=== PATIENT | female | born 1985 | race Caucasian/White ===

== ENCOUNTER 2020-09-08 22:17 | Inpatient (IN) | payer MEDICAID ==
[~2020-09-08] VITALS: Ht 175.3 cm; Wt 90.7 kg
--- NOTE | 2020-09-08 22:25 | NUR ---
PATIENT C/O RIGHT LOWER QUAD ABD PAIN RADIATING TO LEFT SIDE. PATIENT STATED A HX OF APPENDECTOMY. PATIENT IS A/O X 4, RR EVEN AND UNLABORED, NO SIGNS OF SOB NOTED. PATIENT CONNCETED TO FUR FINISHER.
[2020-09-08 23:13] LABS: BILIRUBIN,URINE SMALL (NEGATIVE); COLOR,URINE YELLOW (YELLOW); LEUKOCYTE ESTERASE ,URINE Negative (NEGATIVE); NITRITE, URINE Negative (NEGATIVE); PH,URINE 5.5 (5.0-8.0); PROTEIN,URINE Trace mg/dl (NEGATIVE); UGLUCOSE Negative (NEGATIVE); UROBILINOGEN,URINE 0.2 EU/dL (0.2)
[2020-09-08 23:18] LABS: BACTERIA,URINE Rare /HPF (None Seen); RBC,URINE NONE SEEN /HPF (0-2); SQUAMOUS EPITHELIAL CELL,UR Few /HPF (None Seen); WBC,URINE NONE SEEN /HPF (0-3)
[2020-09-08] MEDS ORDERED: ONDANSETRON HCL/PF 4 MG/2 ML VIAL ONE (23:19)
[2020-09-08] MEDS ORDERED: MORPHINE SULFATE INJ 4 MG/ML DISP.SYRIN ONE (23:19)
[2020-09-08] MEDS ORDERED: IV NS 0.9% 1,000 ML BAG IV ONE (23:30)
[2020-09-08] MEDS ORDERED: ONDANSETRON HCL/PF 4 MG/2 ML VIAL IVP ONE (23:30)
[2020-09-08] MEDS ORDERED: MORPHINE SULFATE INJ 2 MG/ML DISP.SYRIN IV ONE (23:30)
[2020-09-08 23:37] LABS: ALBUMIN 3.7 g/dL (3.4-5.0); BILIRUBIN,DIRECT 0.1 mg/dL (0.0-0.2); BILIRUBIN,TOTAL 0.4 mg/dL (0.2-1.0)
[2020-09-08 23:44] LABS: BASOPHILS # (AUTO) 0.1 K/uL (0.0-0.2); BASOPHILS % (AUTO) 0.2 % (0.0-2.0); EOSINOPHILS % (AUTO) 0.1 % (0.0-6.0); HEMATOCRIT 45 % (33-45); HEMOGLOBIN 15.3 g/dL (11.5-14.8); LYMPHOCYTES # (AUTO) 2.5 K/uL (0.8-4.8); LYMPHOCYTES % (AUTO) 9.6 % (20.0-44.0); MEAN CORPUSCULAR HGB CONC 34 g/dl (31.0-36.0); MEAN CORPUSCULAR VOLUME 91 fL (82-100); MONOCYTES # (AUTO) 1.7 K/uL (0.1-1.30); MONOCYTES % (AUTO) 6.7 % (2.0-12.0); NEUTROPHILS # (AUTO) 21.5 K/uL (1.8-8.9); NEUTROPHILS % (AUTO) 83.4 % (43.0-81.0); PLATELET COUNT (AUTO) 571 K/uL (150-450); RED BLOOD CELL COUNT(AUTO) 4.92 MIL/uL (4.0-5.2); WHITE BLOOD COUNT (AUTO) 25.8 K/uL (4.3-11.0)
--- NOTE | 2020-09-09 00:35 | NUR ---
RAD AT BEDSIDE
[2020-09-09] MEDS ORDERED: PIPERACILLIN /TAZOBACTAM 3.375 G in IV D5W 50 ML IV ONE (01:00)
--- NOTE | 2020-09-09 01:20 | NUR ---
COVID SWAB COLLECTED AND SENT TO LAB
[2020-09-09] MEDS ORDERED: PIPERACILLIN /TAZOBACTAM 3.375 G VIAL IV ONE (01:21)
[2020-09-09] MEDS ORDERED: Z GUARD REMEDY 2 OZ OINT TP PRN (03:30)
[2020-09-09] MEDS ORDERED: MAG HYDROX/AL HYDROX/SIMETH 30 ML UDC PO PRN (03:30)
[2020-09-09] MEDS ORDERED: MORPHINE SULFATE INJ 2 MG/ML DISP.SYRIN IV PRN (03:30)
[2020-09-09] MEDS ORDERED: ONDANSETRON HCL/PF 4 MG/2 ML VIAL IVP PRN (03:30)
[2020-09-09] MEDS ORDERED: MAGNESIUM HYDROXIDE 30 ML UDC PO PRN (03:30)
[2020-09-09] MEDS ORDERED: PIPERACILLIN /TAZOBACTAM 3.375 G in IV D5W 50 ML IV SCH (06:00)
--- NOTE | 2020-09-09 06:30 | NUR ---
PATINET RESTING IN BED, VSS, A/OX4. WILL CONTINUE TO MONITOR.
--- NOTE | 2020-09-09 07:16 | NUR ---
room [facility]
--- NOTE | 2020-09-09 07:27 | NUR ---
REPORT GIVEN TO IRVING YOUNG.
[2020-09-09] MEDS ORDERED: PIPERACILLIN /TAZOBACTAM 3.375 G in IV D5W 100 ML IV SCH (08:00)
[2020-09-09] MEDS ORDERED: OLAN10TA3 PO (08:05)
[2020-09-09] MEDS ORDERED: ESTR2TAB PO (08:05)
[2020-09-09] MEDS ORDERED: SPIR100T5 PO ×2 (08:05)
--- NOTE | 2020-09-09 08:17 | NUR ---
patient transferred to [facility] floor in stable condition. patient a/ox4, no distress noted.
--- NOTE | 2020-09-09 08:30 | NUR ---
RN OPENING NOTE Received patient awake in bed appears calm and relaxed no signs of distress. On room air tolerating well. Vital signs as follows BP 122/79, HR 79, RR 18, Temp: 98.8, O2: 94%. Patient is aox4. D5 1/2 NS running. No co pain or discomfort at this time. Safety measures reinforced. Call light within reach. Bed locked and on lowest position. Will cont to monitor.
[2020-09-09] MEDS: PANTOPRAZOLE 40 MG VIAL IV SCH (09:50)
[2020-09-09] MEDS: IV D5/0.45 NACL 1,000 ML IV PRN ×2 (10:05→17:57)
--- NOTE | 2020-09-09 10:30 | NUR ---
Taken to OR via bed.
[2020-09-09] MEDS ORDERED: BUPIVACAINE MPF 0.5% W/EPI INJ 30 ML VIAL ONE (10:52)
[2020-09-09] MEDS ORDERED: MIDAZOLAM HCL 2 MG/2ML VIAL ONE (10:58)
[2020-09-09] MEDS ORDERED: FENTANYL PF 250MCG/5ML AMPUL ONE (10:58)
[2020-09-09] MEDS ORDERED: ROCURONIUM BROMIDE 50 MG/5 ML ONE (10:59)
[2020-09-09] MEDS ORDERED: FAMOTIDINE/PF INJ 20 MG/2 ML VIAL IV ONE (10:59)
[2020-09-09] MEDS ORDERED: GLYCOPYRROLATE 0.2 MG/ML VIAL ONE (11:24)
[2020-09-09] MEDS ORDERED: METRONIDAZOLE 500MG/ NS 100ML 100 ML IV ONE (12:10)
[2020-09-09] MEDS ORDERED: HYDROMORPHONE 1 MG/1 ML DISP.SYRIN ONE (12:47)
--- NOTE | 2020-09-09 13:35 | NUR ---
pt cAME BACK FROM OR ON O2 2L TOLERATING WELL. HAS 4 DRESSINGS. 1 BIG ON RIGHT LOWER ABD, 3 SMALL ONES FROM LAP. CYNTHIA DRAIN ATTACHED. VS FOLLOWS: HR 103, RR 18 TEMP 98.0 BP 122/76. SAFETY MEASURES REINFORCED CALL LIGHT WITHIN REACH. AT BEDSIDE.
[2020-09-09] MEDS: MORPHINE SULFATE INJ 2 MG/ML DISP.SYRIN IV PRN ×3 (15:51→22:44)
[2020-09-09 16:40] VITALS: BP 113/71
[2020-09-09] MEDS: ACETAMINOPHEN 325 MG TABLET PO PRN (17:34)
[2020-09-09] MEDS: METOCLOPRAMIDE HCL 10 MG/2 ML VIAL IV SCH (17:34)
--- NOTE | 2020-09-09 18:40 | NUR ---
RN CLOSING NOTE 19 Patient in bed awake. Appears calm but in pain. Per patient and they tried to sit up straight for meal but felt so much pain. Gave pain meds as ordered. IVF running D5 1/2 NS @ 100 ml/hr. All due meds given. All needs attended. Safety measures maintained. Will endorse to warehouse supervisor 3rd shift nurse for [employer].
[2020-09-09 20:00] VITALS: BP 111/75
--- NOTE | 2020-09-09 20:00 | NUR ---
MS RN OPENING NOTES RECEIVED PATIENT RESTING IN BED WITH AT BEDSIDE, ALERT AND ORIENTED X 4. NO DISTRESS OR SOB NOTED, PATIENT STABLE ON 2L OF OXYGEN VIA NASAL CANNULA, BREATHING EVEN AND UNLABORED. NO COMPLAINTS OF PAIN AT THIS TIME. RIGHT AC #20G IV ACCESS RUNNING IVF D5 1/2 NS @ 100 ML/HR. ABDOMINAL DRESSING CLEAN AND INTACT, CYNTHIA DRAIN INTACT. SAFETY MEASURES IMPLEMENTED WITH BED AT LOWEST POSITION AND SIDE RAILS UP X 2, BED ALARM ON. CALL LIGHT IS WITHIN REACH. WILL CONTINUE TO MONITOR THROUGHOUT SHIFT.
[2020-09-09] MEDS: ANCEF 1 GM/50 ML D5W IV SCH (20:07)
[2020-09-09] MEDS: METRONIDAZOLE 500MG/ NS 100ML 500 MG in PREMIX 1 EA IV SCH (21:07)
[2020-09-10] MEDS: METOCLOPRAMIDE HCL 10 MG/2 ML VIAL IV SCH ×4 (00:03→17:26)
[2020-09-10] MEDS: MORPHINE SULFATE INJ 2 MG/ML DISP.SYRIN IV PRN ×7 (01:25→21:36)
[2020-09-10] MEDS: ANCEF 1 GM/50 ML D5W IV SCH ×3 (04:01→20:07)
[2020-09-10] MEDS: METRONIDAZOLE 500MG/ NS 100ML 500 MG in PREMIX 1 EA IV SCH ×3 (05:04→21:36)
[2020-09-10] MEDS: IV D5/0.45 NACL 1,000 ML IV PRN ×2 (06:07→17:26)
--- NOTE | 2020-09-10 07:00 | NUR ---
MS RN CLOSING NOTES PATIENT RESTING IN BED, ALERT AND ORIENTED X 4. NO DISTRESS OR SOB NOTED, PATIENT STABLE ON 2L OF OXYGEN VIA NASAL CANNULA, BREATHING EVEN AND UNLABORED. NO COMPLAINTS OF PAIN AT THIS TIME. RIGHT AC #20G IV ACCESS RUNNING IVF D5 1/2 NS @ 100 ML/HR. ABDOMINAL DRESSING CLEAN, DRY, AND INTACT, CYNTHIA DRAIN INTACT WITH 40 ML SEROSANGUINEOUS OUTPUT. MEDICATIONS GIVEN ORDERED, PT NEEDS MET THROUGHOUT SHIFT. SAFETY MEASURES IMPLEMENTED WITH BED AT LOWEST POSITION AND SIDE RAILS UP X 2, BED ALARM ON. CALL LIGHT IS WITHIN REACH. WILL ENDORSE TO DAY SHIFT NURSE FOR CONTINUITY OF CARE
--- NOTE | 2020-09-10 07:08 | NUR ---
MS RN OPENING NOTES RECEIVE PT AWAKE IN BED AT THIS TIME. AOX4. ABLE TO MAKE NEEDS KNOWN. NO SOB NOTED, NO S/O OF ANY ACUTE DISTRESS NOTED, NO C/O PAIN AT THIS. BREATHING EVEN AND UNLABORED. PT NOTED ON 2LPM OXYGEN VIA NC. IV ACCESS IN RAC G#20, INTACT, PATENT AND FLUSHING WELL. RIGHT LOWER ABDOMINAL CYNTHIA DRAIN TO BULB SUCTION NOTED WITH SANGUINOUS FLUID. SAFETY PRECAUTIONS IN PLACE AND MAINTAINED AT ALL TIMES. BED IN LOWEST LOCKED POSITION, HOB ELEVATED, SIDE RAILS UP X2, CALL LIGHT AND TABLE WITHIN REACH. WILL CONTINUE TO MONITOR
[2020-09-10 08:00] VITALS: BP 119/76
[2020-09-10] MEDS: PANTOPRAZOLE 40 MG VIAL IV SCH (08:44)
--- NOTE | 2020-09-10 08:45 | NUR ---
PATIENT C/O OF ACHING RIGHT LOWER ABDOMINAL PAIN OF 8/10. PT NOTED GRIMACING. VS BP 119/76, HR 106, RR 18, TEMP 100.1, SPO2 95% ON RA. PER PATIENT REQUEST MORPHINE 1MG IV Q2H PRN ADMINISTERED PER ORDER. WILL CONTINUE TO MONITOR
[2020-09-10 08:49] LABS: BASOPHILS % (AUTO) 0.2 % (0.0-2.0)
--- NOTE | 2020-09-10 09:00 | NUR ---
patient noted with Temp 100.1, cooling measures in place, room kept cool, ice pack under arms, pt uncovered. will continue to monitor Addendum: 09/10/20 at 0920 by MICHAEL ARRIAGA RN patient noted with Temp 100.1, cooling measures in place, room kept cool, ice pack under arms, pt uncovered. Dr voss made aware. no new orders. will continue to monitor
[2020-09-10 09:03] LABS: HEMATOCRIT 35 % (33-45); HEMOGLOBIN 11.9 g/dL (11.5-14.8); LYMPHOCYTES # (AUTO) 1.3 K/uL (0.8-4.8); LYMPHOCYTES % (AUTO) 7.5 % (20.0-44.0); MEAN CORPUSCULAR HGB CONC 34 g/dl (31.0-36.0); MEAN CORPUSCULAR VOLUME 91 fL (82-100); MONOCYTES # (AUTO) 1.2 K/uL (0.1-1.30); MONOCYTES % (AUTO) 7.4 % (2.0-12.0); NEUTROPHILS # (AUTO) 14.3 K/uL (1.8-8.9); NEUTROPHILS % (AUTO) 84.9 % (43.0-81.0); PLATELET COUNT (AUTO) 419 K/uL (150-450); RED BLOOD CELL COUNT(AUTO) 3.83 MIL/uL (4.0-5.2); WHITE BLOOD COUNT (AUTO) 16.9 K/uL (4.3-11.0)
--- NOTE | 2020-09-10 09:45 | NUR ---
PATIENT PROVIDED WITH INCENTIVE SPIROMETER AND EDUCATION PROVIDED ON USE. PT VERBALIZED AND DEMONSTRATED APPROPRIATE USE. WILL CONTINUE WITH PLAN OF CARE
--- NOTE | 2020-09-10 10:03 | NUR ---
REASSESSED TEMPERATURE AT THIS TIME WITH COOLING MEASURES IN PLACE. PT NOTED WITH TEMP 98.1. WILL CONTINUE TO MONITOR
[2020-09-10 10:15] LABS: THYROID STIMULATING HORMONE 1.11 uIU/mL (0.358-3.74)
[2020-09-10 10:42] LABS: ALBUMIN 2.6 g/dL (3.4-5.0); BILIRUBIN,TOTAL 0.5 mg/dL (0.2-1.0); CALCIUM, SERUM 7.8 mg/dL (8.5-10.1); CREATININE 0.9 mg/dL (0.6-1.3); MAGNESIUM 1.9 mg/dL (1.8-2.4); PHOSPHORUS 1.7 mg/dL (2.5-4.9); POTASSIUM 3.4 mmol/L (3.5-5.1)
--- NOTE | 2020-09-10 11:04 | NUR ---
PATIENT C/O OF ACHING RIGHT LOWER ABDOMINAL PAIN OF 8/10. PT NOTED GRIMACING. VS BP 123/78, HR 105, RR 18, TEMP 99.2, SPO2 93% ON RA. PER PATIENT REQUEST MORPHINE 1MG IV Q2H PRN ADMINISTERED PER ORDER. COOLING MEASURES IN PLACE, ROOM KEPT COOL, SHEETS REMOVED. WILL CONTINUE TO MONITOR
[2020-09-10] MEDS: ACETAMINOPHEN 325 MG TABLET PO PRN ×2 (12:35→20:07)
--- NOTE | 2020-09-10 12:36 | NUR ---
patient noted with Temp 100.1 at this time, cooling measures in place, room kept cool, ice pack under arms, pt uncovered. Dr Eason at bedside and made aware. per patient request, tylenol 650mg po q6h prn administered per order. will continue to monitor
--- NOTE | 2020-09-10 14:07 | NUR ---
PATIENT C/O OF ACHING RIGHT LOWER ABDOMINAL PAIN OF 10/10. PT APPEARS RESTLESS. VS BP 123/80, HR 98, RR 18, TEMP 98.9, SPO2 96% ON RA. PER PATIENT REQUEST MORPHINE 1MG IV Q2H PRN ADMINISTERED PER ORDER. COOLING MEASURES IN PLACE, ROOM KEPT COOL, SHEETS REMOVED. WILL CONTINUE TO MONITOR
[2020-09-10] MEDS ORDERED: K PHOS NEUTRAL 250 MG TABLET PO ONE (15:00)
[2020-09-10 16:00] VITALS: BP 127/78
--- NOTE | 2020-09-10 17:35 | NUR ---
PATIENT C/O OF ACHING RIGHT LOWER ABDOMINAL PAIN OF 8/10. PT APPEARS RESTLESS. VS BP 127/79, HR 92, RR 18, TEMP 98.5, SPO2 93% ON RA. PER PATIENT REQUEST MORPHINE 1MG IV Q2H PRN ADMINISTERED PER ORDER. COOLING MEASURES IN PLACE, ROOM KEPT COOL, SHEETS REMOVED. WILL CONTINUE TO MONITOR
--- NOTE | 2020-09-10 19:05 | NUR ---
RN CLOSING NOTES RECEIVED PT AWAKE IN BED, PT REMAINED STABLE THROUGHOUT SHIFT. ALL PATIENT CARE, NEEDS AND MEDICATIONS ADMINISTERED ANTICIPATED PER ORDER. PAIN AND NAUSEA CONTRO ADMINISTERED PER ORER. PT AMBULATED AD SARINA PER ORDER. KEPT CLEAN AND DRY. SAFETY PRECAUTIONS IN PLACE AND MAINTAINED AT ALL TIMES. BED IN LOWEST LOCKED POSITION, HOB ELEVATED, SIDE RAILS UP X2, CALL LIGHT AND TABLE WITHIN REACH. WILL ENDORSE TO HUNTING AND FISHING GUIDE NURSE FOR BEV
--- NOTE | 2020-09-10 20:00 | NUR ---
MS RN OPENING NOTES PATIENT RESTING IN BED WITH AT BEDSIDE, ALERT AND ORIENTED X 4. NO DISTRESS OR SOB NOTED, PATIENT STABLE ON ROOM AIR, BREATHING EVEN AND UNLABORED. NO COMPLAINTS OF PAIN AT THIS TIME. RIGHT AC #20G IV ACCESS RUNNING IVF D5 1/2 NS @ 100 ML/HR. ABDOMINAL DRESSING CLEAN AND INTACT, CYNTHIA DRAIN INTACT. SAFETY MEASURES IMPLEMENTED WITH BED AT LOWEST POSITION AND SIDE RAILS UP X 2, BED ALARM ON. CALL LIGHT IS WITHIN REACH. WILL CONTINUE TO MONITOR THROUGHOUT SHIFT.
--- NOTE | 2020-09-10 20:10 | NUR ---
MS RN NOTE PATIENT HAS TEMP OF 100.0, COOLING MEASURES IN PLACE, ROOM KEPT COOL, PATIENT UNCOVERED, ICE PACK PROVIDED. TYLENOL 650 MG GIVEN PER PATIENT REQUEST. WILL CONTINUE TO MONITOR
[2020-09-10 20:29] VITALS: BP 135/81
--- NOTE | 2020-09-10 20:45 | NUR ---
MS RN NOTES PATIENT REQUESTED SOMETHING FOR SLEEP B/C SHE HAS BEEN HAVING TROUBLE SLEEPING. NOTIFIED CLAIRE JOHN NP WITH NEW ORDERS FOR BENADRYL 50 MG PO HS PRN FOR SLEEP. ORDER READBACK AND CONFIRMED.
[2020-09-10] MEDS: diphenhydrAMINE HCL 50 MG CAPSULE PO PRN (22:15)
[2020-09-11] MEDS: METOCLOPRAMIDE HCL 10 MG/2 ML VIAL IV SCH ×5 (00:35→23:22)
[2020-09-11] MEDS: ACETAMINOPHEN 325 MG TABLET PO PRN ×3 (02:24→17:58)
[2020-09-11] MEDS: ANCEF 1 GM/50 ML D5W IV SCH ×3 (04:14→20:05)
[2020-09-11] MEDS: METRONIDAZOLE 500MG/ NS 100ML 500 MG in PREMIX 1 EA IV SCH ×3 (05:21→21:23)
[2020-09-11] MEDS: IV D5/0.45 NACL 1,000 ML IV PRN ×2 (05:37→18:25)
--- NOTE | 2020-09-11 06:57 | NUR ---
MS RN CLOSING NOTES PATIENT RESTING IN BED, ALERT AND ORIENTED X 4. NO DISTRESS OR SOB NOTED, PATIENT STABLE ON ROOM AIR, BREATHING EVEN AND UNLABORED. NO COMPLAINTS OF PAIN AT THIS TIME. RIGHT AC #20G IV ACCESS RUNNING IVF D5 1/2 NS @ 100 ML/HR. ABDOMINAL DRESSING CLEAN, DRY, AND INTACT, CYNTHIA DRAIN INTACT WITH SEROSANGUINEOUS OUTPUT. MEDICATIONS GIVEN ORDERED, PT NEEDS MET THROUGHOUT SHIFT. SAFETY MEASURES IMPLEMENTED WITH BED AT LOWEST POSITION AND SIDE RAILS UP X 2, BED ALARM ON. CALL LIGHT IS WITHIN REACH. WILL ENDORSE TO DAY SHIFT NURSE FOR CONTINUITY OF CARE
[2020-09-11 07:14] LABS: BASOPHILS % (AUTO) 0.2 % (0.0-2.0); EOSINOPHILS % (AUTO) 0.8 % (0.0-6.0); HEMATOCRIT 32 % (33-45); HEMOGLOBIN 11.3 g/dL (11.5-14.8); LYMPHOCYTES # (AUTO) 1.8 K/uL (0.8-4.8); LYMPHOCYTES % (AUTO) 12.8 % (20.0-44.0); MEAN CORPUSCULAR HGB CONC 35 g/dl (31.0-36.0); MEAN CORPUSCULAR VOLUME 90 fL (82-100); MONOCYTES # (AUTO) 1.3 K/uL (0.1-1.30); MONOCYTES % (AUTO) 9.4 % (2.0-12.0); NEUTROPHILS # (AUTO) 10.8 K/uL (1.8-8.9); NEUTROPHILS % (AUTO) 76.8 % (43.0-81.0); PLATELET COUNT (AUTO) 376 K/uL (150-450); WHITE BLOOD COUNT (AUTO) 14.1 K/uL (4.3-11.0)
--- NOTE | 2020-09-11 07:48 | NUR ---
MS RN OPENING NOTES RECEIVED PATIENT AWAKE IN BED, RESTING COMFORTABLY. NO SIGNS OR SYMPTOMS OF DISTRESS NOTED. NO SOB. BREATHING IS EVEN AN UNLABORED. PATIENT COMPLAINED OF SOME ABDOMINAL PAIN. WILL ADMINISTER TYLENOL WHEN DUE. IV ACCESS RAC#20 PATENT AND INTACT RUNNING D5 1/2 NS @100MLS/HR. SAFETY MEASURES MAINTAINED WITH BED LOCKED AT LOW POSITION. CALL LIGHT IS WITHIN REACH. WILL CONTINUE TO MONITOR THROUGHOUT SHIFT.
[2020-09-11 08:08] VITALS: BP 138/86
[2020-09-11] MEDS: PANTOPRAZOLE 40 MG VIAL IV SCH (08:21)
[2020-09-11] MEDS ORDERED: K PHOS NEUTRAL 250 MG TABLET PO ONE (09:30)
[2020-09-11] MEDS ORDERED: POTASSIUM CHLORIDE 20 MEQ TAB.PRT.SR PO SCH (09:30)
[2020-09-11] MEDS: MORPHINE SULFATE INJ 2 MG/ML DISP.SYRIN IV PRN ×3 (10:44→20:05)
--- NOTE | 2020-09-11 14:33 | NUR ---
RN NOTE PATIENT COMPLAINED OF SEVERE PAIN 09/26, ASKED FOR PRN PAIN MEDICATION. VITALS STABLE. WILL GIVE PRN MEDICATION ORDERED.
[2020-09-11 16:20] VITALS: BP 126/72
--- NOTE | 2020-09-11 18:55 | NUR ---
MS RN CLOSING NOTES PATIENT IS RESTING IN BED WITH FAMILY AT BEDSIDE. ALERT AND ORIENTED X 4. NO SIGNS OR SYMPTOMS OF DISTRESS NOTED. NO SOB. PATIENT STABLE ON ROOM AIR, BREATHING EVEN AND UNLABORED. PATIENT C/O PAIN LEVEL 4/10. TYLENOL 650MG GIVEN. RAC#20 IV ACCESS RUNNING D5 1/2 NS @ 100 ML/HR. ABDOMINAL DRESSING CLEAN, DRY, AND INTACT. CYNTHIA DRAIN INTACT WITH SEROSANGUINEOUS OUTPUT. ALL NEEDS MET THROUGHOUT SHIFT. SAFETY MEASURES IMPLEMENTED WITH BED AT LOWEST POSITION AND SIDE RAILS UP X 2. CALL LIGHT IS WITHIN REACH. WILL ENDORSE TO DAY SHIFT NURSE FOR CONTINUITY OF CARE
[2020-09-11 20:00] VITALS: BP 134/79
--- NOTE | 2020-09-11 20:00 | NUR ---
MS RN OPENING NOTES Patient is A&Ox4, no distress currently. Tolerating soft diet well at this time. Denies side effects from ABX. Pain able to be managed with PRN Morphine per patient.
[2020-09-11] MEDS: diphenhydrAMINE HCL 50 MG CAPSULE PO PRN (23:26)
[2020-09-12] MEDS: ANCEF 1 GM/50 ML D5W IV SCH (04:11)
[2020-09-12] MEDS: METRONIDAZOLE 500MG/ NS 100ML 500 MG in PREMIX 1 EA IV SCH (05:00)
[2020-09-12] MEDS: IV D5/0.45 NACL 1,000 ML IV PRN (05:36)
[2020-09-12] MEDS: METOCLOPRAMIDE HCL 10 MG/2 ML VIAL IV SCH (05:36)
[2020-09-12] MEDS: ACETAMINOPHEN 325 MG TABLET PO PRN ×2 (05:42→12:13)
--- NOTE | 2020-09-12 06:20 | NUR ---
MS RN CLOSING NOTES Patient is A&Ox4. VSS. C/o 8/10 abdominal pain at bedtime relieved by PRN Morphine. In am patient reports only 3/10 pain relieved by tylenol. Tolerating IVF well. No ase from IV ABX. No nausea or vomiting. tolerating new diet well.
--- NOTE | 2020-09-12 06:38 | NUR ---
emptied CYNTHIA drain 10cc of serosanguineous output
[2020-09-12 06:48] LABS: CALCIUM, SERUM 8.4 mg/dL (8.5-10.1); CREATININE 0.8 mg/dL (0.6-1.3); PHOSPHORUS 3.7 mg/dL (2.5-4.9); POTASSIUM 3.2 mmol/L (3.5-5.1)
[2020-09-12 07:13] LABS: BASOPHILS % (AUTO) 0.4 % (0.0-2.0); EOSINOPHILS % (AUTO) 2.4 % (0.0-6.0); HEMATOCRIT 31 % (33-45); HEMOGLOBIN 11.2 g/dL (11.5-14.8); LYMPHOCYTES % (AUTO) 25.1 % (20.0-44.0); MEAN CORPUSCULAR HGB CONC 36 g/dl (31.0-36.0); MEAN CORPUSCULAR VOLUME 89 fL (82-100); MONOCYTES % (AUTO) 8.4 % (2.0-12.0); NEUTROPHILS # (AUTO) 7.7 K/uL (1.8-8.9); NEUTROPHILS % (AUTO) 63.7 % (43.0-81.0); PLATELET COUNT (AUTO) 400 K/uL (150-450); RED BLOOD CELL COUNT(AUTO) 3.54 MIL/uL (4.0-5.2); WHITE BLOOD COUNT (AUTO) 12.1 K/uL (4.3-11.0)
--- NOTE | 2020-09-12 08:00 | NUR ---
received pt. in am alert and oriented x4.c/o iv rt. arm sore,iv turned off.
[2020-09-12 08:27] VITALS: BP 114/70
--- NOTE | 2020-09-12 08:30 | NUR ---
dr. tomas in orders given.
[2020-09-12] MEDS ORDERED: SPIRONOLACTONE 50 MG TABLET PO SCH ×2 (09:00→22:00)
[2020-09-12] MEDS ORDERED: ESTRADIOL 1 MG TABLET PO SCH (09:00)
[2020-09-12] MEDS ORDERED: POTASSIUM CHLORIDE 20 MEQ TAB.PRT.SR PO ONE (09:00)
[2020-09-12] MEDS ORDERED: OLANZAPINE 10 MG TABLET PO SCH (09:00)
[2020-09-12] MEDS ORDERED: SPIRONOLACTONE 25 MG TABLET PO SCH ×2 (09:00→22:00)
[2020-09-12] MEDS: PANTOPRAZOLE 40 MG VIAL IV SCH (09:36)
--- NOTE | 2020-09-12 09:37 | NUR ---
k-dur given for low potassium.
--- NOTE | 2020-09-12 10:00 | NUR ---
dr. romeo in drain removed,looked at pt's swollen rt. arm.dc order given.
[2020-09-12] MEDS ORDERED: LEVO500T90 PO (14:39)
[2020-09-12] MEDS ORDERED: METR500T PO (14:39)
--- NOTE | 2020-09-12 15:33 | NUR ---
no prescriptions given by dr. romeo.rn contacted dr. genoveva dc meds faxed to pt's pharmacy
--- NOTE | 2020-09-12 15:35 | NUR ---
here,all papers signed,taken in w/c to lobby for discharge.
[2020-09-13] MEDS ORDERED: PANTOPRAZOLE 40 MG TABLET.DR PO SCH (07:30)
== END 2020-09-12 15:30 | disposition home or self-care (01) | DRG 710 ==
LOC: ER 22:17 → EDSEX 09-09 07:45 → MED 09-09 07:45
PROVIDERS: ADMIT Internal Medicine; ATTEND Family Medicine
PROC: 0DTJ4ZZ Resection of Appendix, Percutaneous Endoscopic Approach (ICD-10-PCS; principal; 2020-09-09)
PROC: 0DBH0ZZ Excision of Cecum, Open Approach (ICD-10-PCS; 2020-09-09)
DX: A41.9 Sepsis, unspecified organism (principal); E44.0 Moderate protein-calorie malnutrition; K35.30 Acute appendicitis with localized peritonitis, without perforation or gangrene; E83.39 Other disorders of phosphorus metabolism; E87.1 Hypo-osmolality and hyponatremia; K66.0 Peritoneal adhesions (postprocedural) (postinfection); Z20.822 Contact with and (suspected) exposure to COVID-19; Z79.899 Other long term (current) drug therapy; E86.1 Hypovolemia
CPT/HCPCS: 36415; 71045-TC; 76705-TC; 80048-TC; 80053-TC; 80061-TC; 80076-TC; 81001; 83690-TC; 83735-TC; 84100-TC; 84443-TC; 85025-TC; 87070-TC; 87075-TC; 87081-TC; 87186-TC; 88304-TC; A4216; A6209; C9113; C9803; G0378; J0690; J1170; J1885; J2250; J2270; J2405; J2543; J2704; J2765; J3010; J3490; J7042; J7060; J7070; Q0163

== ENCOUNTER → 2021-06-26 | Emergency (ER) | payer BC, OTHER ==
[~2021-06-26] VITALS: Ht 175.3 cm; Wt 81.6 kg
[~2021-06-26] MED LIST: ESTR2TAB PO; IV NS 0.9% 1,000 ML BAG IV ONE; LEVO500T90 PO; MAGNESIUM CITRATE 296 ML BOTTLE ONE; MAGNESIUM CITRATE 296 ML BOTTLE PO ONE; METR500T PO; OLAN10TA3 PO; POLY119P2 PO; SPIR100T5 PO
--- NOTE | 2021-06-26 17:08 | NUR ---
PT BIBS C/O CONSTIPATION X3 DAYS, PER PT HER LAST BM WAS 3 DAYS AGO, PT C/O PAIN 05/27. PT IS A/OX4.
[2021-06-26 17:38] LABS: CALCIUM, SERUM 8.9 mg/dL (8.5-10.1); CREATININE 0.9 mg/dL (0.6-1.3); POTASSIUM 4.1 mmol/L (3.5-5.1)
[2021-06-26 17:41] LABS: BASOPHILS % (AUTO) 0.3 % (0.0-2.0); EOSINOPHILS % (AUTO) 0.4 % (0.0-6.0); HEMATOCRIT 42 % (33-45); HEMOGLOBIN 14.5 g/dL (11.5-14.8); LYMPHOCYTES % (AUTO) 15.8 % (20.0-44.0); MEAN CORPUSCULAR HGB CONC 34 g/dl (31.0-36.0); MEAN CORPUSCULAR VOLUME 92 fL (82-100); MONOCYTES # (AUTO) 1.5 K/uL (0.1-1.30); NEUTROPHILS # (AUTO) 14.2 K/uL (1.8-8.9); NEUTROPHILS % (AUTO) 75.5 % (43.0-81.0); PLATELET COUNT (AUTO) 429 K/uL (150-450); RED BLOOD CELL COUNT(AUTO) 4.58 MIL/uL (4.0-5.2); WHITE BLOOD COUNT (AUTO) 18.9 K/uL (4.3-11.0)
[2021-06-26 17:43] LABS: ALBUMIN 3.6 g/dL (3.4-5.0); BILIRUBIN,DIRECT 0.1 mg/dL (0.0-0.2); BILIRUBIN,TOTAL 0.2 mg/dL (0.2-1.0); TOTAL PROTEIN, SERUM 7.9 g/dL (6.4-8.2)
[2021-06-26 19:55] VITALS: BP 129/82
--- NOTE | 2021-06-26 19:55 | NUR ---
Patient discharged to home in stable condition. RX,Written and verbal after care instructions given. Patient verbalizes understanding of instruction.IV removed. Catheter intact and site benign. Pressure and 4x4 applied to site. No bleeding noted.
== END | disposition home or self-care (01) ==
LOC: ER 16:18
DX: K59.00 Constipation, unspecified (principal); D72.829 Elevated white blood cell count, unspecified; Z90.89 Acquired absence of other organs; Z79.899 Other long term (current) drug therapy
CPT/HCPCS: 36415; 74176; 80048; 80076; 83690; 85025; 96360; 99284; J7030